=== PATIENT | female | born 1980 | race African-American/Black ===

== ENCOUNTER 2024-05-10 20:46 | Emergency (ER) | payer MEDICAID, OTHER ==
[~2024-05-10] VITALS: Ht 167.6 cm; Wt 112.0 kg
[2024-05-10 20:52] VITALS: BP 145/94; PULSE 90; RESP 18; TEMP 97.8; O2SAT 98
[2024-05-10] MEDS ORDERED: ACETAMINOPHEN 325MG TABLET PO ONE (21:45)
[2024-05-10] MEDS ORDERED: ACETAMINOPHEN 325MG TABLET PO NR (23:00)
[2024-05-11] MEDS ORDERED: NAPR-1176 MT (00:11)
== END 2024-05-11 01:11 | disposition home or self-care (01) ==
LOC: ER 20:46
DX: M25.531 Pain in right wrist (principal)
CPT/HCPCS: 73120; 99283

== ENCOUNTER 2024-12-18 16:25 | Emergency (ER) | payer MEDICAID ==
[~2024-12-18] VITALS: Ht 165.1 cm; Wt 100.0 kg
[~2024-12-18 16:25] MED LIST: NAPR-1176 MT
[2024-12-18 16:42] VITALS: BP 148/89; PULSE 100; RESP 18; TEMP 98; O2SAT 95
== END 2024-12-18 19:50 | disposition left against medical advice (07) ==
LOC: ER 16:25
DX: M54.2 Cervicalgia (principal); Z53.21 Procedure and treatment not carried out due to patient leaving prior to being seen by health care provider